=== PATIENT | male | born 1950 | race Asian ===

== ENCOUNTER 2023-11-01 05:45 | Day surgery (SDC) | payer BC, OTHER ==
[~2023-11-01] VITALS: Ht 167.6 cm; Wt 63.5 kg
[2023-11-01 06:51] VITALS: O2SAT 99
[2023-11-01] MEDS ORDERED: CEFAZOLIN SOD 2 GM in D5W 50 ML IV ONE (07:00)
[2023-11-01] MEDS ORDERED: ROCURONIUM BROMIDE 10 MG/ML (ZEMURON) ONE (07:45)
[2023-11-01] MEDS ORDERED: NS 1000 ML IV.SOLN IV ONE (07:45)
[2023-11-01] MEDS ORDERED: BUPIVACAINE /PF 0.25% 30 ML VIAL INJ ONE (07:45)
[2023-11-01] MEDS ORDERED: SEVOFLURANE 15 MIN GAS INH ONE (07:45)
[2023-11-01] MEDS ORDERED: fentaNYL CITRATE/PF 100 MCG/2 ML AMP ONE (07:45)
[2023-11-01] MEDS ORDERED: NS 100 ML BAG ONE (07:45)
[2023-11-01] MEDS ORDERED: PROPOFOL 200MG/ 20ML VIAL (DIPRIVAN) IV ONE (07:45)
[2023-11-01] MEDS ORDERED: METOCLOPRAMIDE HCL 10 MG/2 ML VIAL ONE (07:45)
[2023-11-01] MEDS ORDERED: GLYCOPYRROLATE 0.2 MG/ML VIAL ONE (07:45)
[2023-11-01] MEDS ORDERED: ONDANSETRON HCL 4 MG/2 ML VIAL ONE (07:45)
[2023-11-01] MEDS ORDERED: ACETAMINOPHEN I.V. 1000 MG 100 ML IV ONE (07:48)
[2023-11-01] MEDS ORDERED: D5/0.45 NS 1,000 ML IV SCH (09:15)
[2023-11-01] MEDS ORDERED: HYDROcodone/ACETAMIN 5-325 MG TAB (NORCO/ VICODIN) PO PRN ×2 (09:15)
[2023-11-01] MEDS ORDERED: LR 1,000 ML IV SCH (09:45)
[2023-11-01] MEDS ORDERED: ONDANSETRON HCL 4 MG/2 ML VIAL IVP PRN (09:45)
[2023-11-01] MEDS ORDERED: HYDROmorphone 1 MG/ML INJ. CARTRIDGE IVP PRN (09:45)
[2023-11-01] MEDS ORDERED: NALOXONE HCL 0.4 MG/ML AMP (NARCAN) IVP PRN (09:45)
[2023-11-01] MEDS ORDERED: HYDROmorphone 2 MG/ML VIAL IVP PRN (09:45)
[2023-11-01 10:40] VITALS: BP_SYST 129; PULSE 83; RESP 20
== END 2023-11-01 11:45 | disposition home or self-care (01) ==
LOC: SDS 05:45 → SMU 05:45 → SDS 11:45
PROVIDERS: ATTEND Colon & Rectal Surgery
DX: K80.10 Calculus of gallbladder with chronic cholecystitis without obstruction (principal); K42.9 Umbilical hernia without obstruction or gangrene; E11.65 Type 2 diabetes mellitus with hyperglycemia; R17 Unspecified jaundice; I10 Essential (primary) hypertension; E78.5 Hyperlipidemia, unspecified; E11.42 Type 2 diabetes mellitus with diabetic polyneuropathy; Z79.899 Other long term (current) drug therapy
CPT/HCPCS: 87081; 47563; 82962; 74300; 88304; 49593; J3490 ×2; J0690; J2765; J2405; J2704; J3010; Q9967; J7060; J7030; C1727; J0131; 76000